=== PATIENT | female | born 1980 | race Hispanic/Latino ===

== ENCOUNTER 2019-01-31 19:25 | Emergency (ER) | payer SELFPAY ==
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
== END 2019-01-31 20:50 | disposition home or self-care (01) ==
LOC: ERS 19:25
DX: S09.90XA Unspecified injury of head, initial encounter (principal); S16.1XXA Strain of muscle, fascia and tendon at neck level, initial encounter; V89.2XXA Person injured in unspecified motor-vehicle accident, traffic, initial encounter
CPT/HCPCS: 70450; 72125; G0390